=== PATIENT | female | born 1995 | race Caucasian/White ===

== ENCOUNTER 2025-04-28 19:46 | Emergency (ER) | payer SELFPAY | END 2025-04-28 22:55 | disposition left against medical advice (07) | LOC: ER 19:53 | DX: S99.929A Unspecified injury of unspecified foot, initial encounter (principal); Z53.1 Procedure and treatment not carried out because of patient's decision for reasons of belief and group pressure; X58.XXXA Exposure to other specified factors, initial encounter; Y93.89 Activity, other specified; Y92.89 Other specified places as the place of occurrence of the external cause; Y99.8 Other external cause status ==